=== PATIENT | male | born 1975 | race Caucasian/White ===

== ENCOUNTER → 2018-12-30 14:28 | Outpatient (CLI) | payer OTHER, SELFPAY ==
--- NOTE | 2018-12-30 | DI.CT.S_ITS ---
PROCEDURE: CT ABDOMEN PELVIS W CON INDICATIONS: abdominal pain TECHNIQUE: After the administration of oral and intravenous contrast, 5 mm thick sections acquired from the diaphragms to the symphysis. 5 mm thick coronal and sagittal reformats were performed. For radiation dose reduction, the following was used: automated exposure control, adjustment of mA and/or kV according to patient size. COMPARISON: None. FINDINGS: Image quality: Excellent. ABDOMEN: Lung bases: Lung bases are clear. Heart size is normal. Solid organs: Liver is normal in size and enhancement. Gallbladder is unremarkable. Biliary system is non-dilated. Pancreas enhances normally. Spleen is normal in size and enhancement. No adrenal nodules. Kidneys are normal in size and enhancement, without hydronephrosis. Small well-circumscribed cortical hypodensities in the right kidney which most likely represent benign cysts. Peritoneum and bowel: Stomach, small bowel, and colon loops are normal in caliber and wall thickness. Mild diverticulosis. Appendix is normal. No free fluid or air. Nodes and vessels: No retroperitoneal or mesenteric adenopathy. Aorta and inferior vena cava are normal in caliber. Miscellaneous: No ventral hernias. PELVIS: Genitourinary: Bladder is unremarkable. Miscellaneous: Small fat-containing right inguinal hernia, (2/43). No suspicious adenopathy. Bones: No suspicious bony lesions. No vertebral body compression fractures. IMPRESSION: Negative exam. No abnormality identified to explain the patient's abdominal pain. No kidney stones. Normal appendix and gallbladder. A few colonic diverticuli. Dictated by: Gabino Jay M.D. on 12/30/2018 at 17:08 Approved by: Gabino Jay M.D. on 12/30/2018 at 17:13
== END ==
PROVIDERS: PCP Family Medicine; Visit Provider Family Medicine
DX: R10.9 Unspecified abdominal pain (principal); K40.90 Unilateral inguinal hernia, without obstruction or gangrene, not specified as recurrent; K57.90 Diverticulosis of intestine, part unspecified, without perforation or abscess without bleeding
CPT/HCPCS: 74177

== ENCOUNTER → 2020-02-14 09:06 | Outpatient (CLI) | payer OTHER, SELFPAY ==
[2020-02-15 22:39] LABS: COVID19 Sendout Not Detected (Not Detect)
== END ==
PROVIDERS: PCP Family Medicine; Visit Provider Physician Assistant
DX: Z11.59 Encounter for screening for other viral diseases (principal)
CPT/HCPCS: 87635

== ENCOUNTER 2020-02-17 06:54 | Day surgery (SDC) | payer OTHER, SELFPAY ==
[2020-02-17] MEDS: CATARACT EYE COMPOUND (10 DROPS/SYRINGE) 3 DROPS EYE-OP (07:56)
[2020-02-17] MEDS: PROPARACAINE 0.5% OPHTH SOL 2 DROPS EYE-OP (07:56)
[2020-02-17 07:58] VITALS: BP 121/73; PULSE 61; RESP 15; TEMP 36.7; O2SAT 99
[2020-02-17 08:00] VITALS: BMI 26.5
--- NOTE | 2020-02-17 08:53 | PM.PREOP ---
Pre-operative Note Interval Note History & Physical reviewed/Exam performed by Physician: Yes Changes to H&P: No
--- NOTE | 2020-02-17 08:53 | PM.OP.1 ---
Operative Date/Time/Diagnoses Pre-op diagnosis: Nuclear cataract right eye Procedure & Clinicians Procedure: Cataract Surgery Same procedure as scheduled: Yes Surgeon: Vitaly De Leon Anesthesia Type: MAC +/- and Sedation Operative Notes Procedure in detail: Patient brought to the operating suite. Tetracaine drops placed in the right eye. Patient was prepped and draped in sterile manner. Wire lid speculum was placed in the eye. Betadine drops were placed on the eye. This was irrigated. Lidocaine jelly was placed on the eye. A paracentesis port was created with a side-port blade. 0.1 mL 1% preservative free lidocaine was injected into the anterior chamber. The anterior chamber was deepened with viscoelastic. 2.6 mm keratome was used to create a temporal clear corneal incision. Cystotome and Utrata forceps were used to create continuous tear capsulorrhexis. Balanced salt solution was used to hydro dissect the nucleus. The phacoemulsification handpiece was inserted and the nucleus was removed using the stop and chop technique. The irrigation aspiration handpiece was inserted and the remaining cortex was removed. Anterior chamber was deepened with viscoelastic. An Doran ZCB00 intraocular lens with a power of 30.5 was injected into the capsular bag. Irrigation aspiration handpiece was inserted and the remaining viscoelastic was removed. Incision was hydrated with balanced salt solution and found to be leak free with pressure with Weck-Mary sponges. 0.1 mL Vigamox injected anterior chamber. 0.3 mL Kenalog 10 mg was injected subconjunctivally. Lid speculum was removed. The patient left the operating room in excellent condition. Complications: none Post-operative Condition: stable Disposition: same day surgery
[2020-02-17] MEDS: CHONDROIDTIN/SOD HYALURONATE 1.05 ML SYRINGE INTRAOCULA (09:16)
[2020-02-17] MEDS: MOXIFLOXACIN INJ 5 MG/ML VIAL EYE-OP (09:16)
[2020-02-17] MEDS: TRIAMCINOLONE 50 MG/5 ML VIAL INJ (09:16)
[2020-02-17] MEDS: PHENYLEPHRINE/LIDOCAINE VIAL (OR) 0.2 ML EYE-OP (09:16)
[2020-02-17] MEDS: BALANCED SALT IRRIG SOLN NO.2 500 ML, EPINEPHrine 1 MG IRR (09:17)
[2020-02-17] MEDS: TETRACAINE 0.5% OPHTH DROPS 4 ML 2 DROPS EYE-OP (09:17)
[2020-02-17] MEDS: LIDOCAINE JELLY 2% 5 ML 1 APPLIC TOP (09:17)
[2020-02-17 09:40] VITALS: BP 107/69; PULSE 64; RESP 18; TEMP 36.7; O2SAT 96
== END 2020-02-17 09:45 | disposition home or self-care (01) ==
PROVIDERS: Admitting Provider Anesthesiology; PCP Family Medicine; Referring Provider Family Medicine; Visit Provider Ophthalmology
PROC: (CPT 66984; principal; 2020-02-17 08:45)
DX: H25.11 Age-related nuclear cataract, right eye (principal); I10 Essential (primary) hypertension; J45.909 Unspecified asthma, uncomplicated
CPT/HCPCS: 66984; J0171; J2250; J3010; J3301

== ENCOUNTER → 2020-02-28 08:41 | Outpatient (CLI) | payer OTHER, SELFPAY ==
[2020-03-01 06:00] LABS: COVID19 Sendout Not Detected (Not Detect)
== END ==
PROVIDERS: PCP Family Medicine; Visit Provider Physician Assistant
DX: Z01.812 Encounter for preprocedural laboratory examination (principal)
CPT/HCPCS: 87635

== ENCOUNTER 2020-03-02 07:05 | Day surgery (SDC) | payer OTHER, SELFPAY ==
[2020-03-02] MEDS: CATARACT EYE COMPOUND (10 DROPS/SYRINGE) 3 DROPS EYE-OP (07:18)
[2020-03-02] MEDS: PROPARACAINE 0.5% OPHTH SOL 2 DROPS EYE-OP (07:18)
[2020-03-02 07:31] VITALS: BP 108/71; PULSE 51; RESP 12; TEMP 36.4; O2SAT 96
[2020-03-02 07:32] VITALS: BMI 26.5
--- NOTE | 2020-03-02 08:31 | P.OP_ITS ---
Operative Date/Time/Diagnoses Pre-op diagnosis: Nuclear Cataract Left eye Post-op diagnosis: same Procedure & Clinicians Same procedure as scheduled: Yes Surgeon: Vitaly De Leon Anesthesia Type: MAC +/- and Sedation Operative Notes Procedure in detail: Patient brought to the operating suite. Tetracaine drops placed in the left eye. Patient was prepped and draped in sterile manner. Wire lid speculum was placed in the eye. Betadine drops were placed on the eye. This was irrigated. Lidocaine jelly was placed on the eye. A paracentesis port was created with a side-port blade. 0.1 mL 1% preservative free lidocaine was injected into the anterior chamber. The anterior chamber was deepened with viscoelastic. 2.6 mm keratome was used to create a temporal clear corneal incision. Cystotome and Utrata forceps were used to create continuous tear capsulorrhexis. Balanced salt solution was used to hydro dissect the nucleus. The phacoemulsification handpiece was inserted and the nucleus was removed using the stop and chop technique. The irrigation aspiration handpiece was inserted and the remaining cortex was removed. Anterior chamber was deepened with viscoe lastic. An Doran ZCB00 intraocular lens with a power of 33.0 was injected into the capsular bag. Irrigation aspiration handpiece was inserted and the remaining viscoelastic was removed. Incision was hydrated with balanced salt solution and found to be leak free with pressure with Weck-Mary sponges. 0.1 mL Vigamox injected anterior chamber. 0.3 mL Kenalog 10 mg was injected subconjunctivally. Lid speculum was removed. The patient left the operating room in excellent condition. Complications: none Post-operative Condition: stable Disposition: same day surgery
--- NOTE | 2020-03-02 08:31 | PM.PREOP ---
Pre-operative Note Interval Note History & Physical reviewed/Exam performed by Physician: Yes Changes to H&P: No
[2020-03-02] MEDS: TRIAMCINOLONE 50 MG/5 ML VIAL INJ (09:01)
[2020-03-02] MEDS: PHENYLEPHRINE/LIDOCAINE VIAL (OR) 0.2 ML EYE-OP (09:01)
[2020-03-02] MEDS: MOXIFLOXACIN INJ 5 MG/ML VIAL EYE-OP (09:01)
[2020-03-02] MEDS: CHONDROIDTIN/SOD HYALURONATE 1.05 ML SYRINGE INTRAOCULA (09:01)
[2020-03-02] MEDS: TETRACAINE 0.5% OPHTH DROPS 4 ML 2 DROPS EYE-OP (09:02)
[2020-03-02] MEDS: BALANCED SALT IRRIG SOLN NO.2 500 ML, EPINEPHrine 1 MG IRR (09:02)
[2020-03-02] MEDS: LIDOCAINE JELLY 2% 5 ML 1 APPLIC TOP (09:02)
[2020-03-02 09:18] VITALS: BP 104/69; PULSE 55; RESP 17; TEMP 36; O2SAT 95
== END 2020-03-02 09:30 | disposition home or self-care (01) ==
LOC: OR 07:05
PROVIDERS: PCP Family Medicine; Referring Provider Family Medicine; Visit Provider Ophthalmology
PROC: (CPT 66984; principal; 2020-03-02 08:15)
DX: H25.12 Age-related nuclear cataract, left eye (principal); J45.909 Unspecified asthma, uncomplicated; I10 Essential (primary) hypertension
CPT/HCPCS: 66984; J0171; J2250; J3010; J3301

== ENCOUNTER → 2020-07-26 14:30 | Outpatient (CLI) | payer OTHER, SELFPAY ==
[2020-07-26 16:07] LABS: COVID19 -Nasal RAPID Negative (Negative)
== END ==
PROVIDERS: PCP Family Medicine; Visit Provider Physician Assistant
DX: Z20.822 Contact with and (suspected) exposure to COVID-19 (principal)
CPT/HCPCS: 87635

== ENCOUNTER → 2020-07-28 15:16 | Outpatient (CLI) | payer OTHER, SELFPAY ==
--- NOTE | 2020-07-28 15:17 | DI.RAD.S_ITS ---
PROCEDURE: XR CHEST 2V INDICATIONS: CHEST PAIN TECHNIQUE: 2 views of the chest were acquired. COMPARISON: None. FINDINGS: Surgical changes and devices: None. Lungs and pleura: Lungs are clear. No pleural effusions or pneumothorax. Mediastinum: Mediastinal contours are normal. Heart size is normal. Bones and chest wall: No suspicious bony abnormalities. Soft tissues appear unremarkable. IMPRESSION: No source for chest pain identified radiographically. Dictated by: Arvind Woods RRA Interpreted: Mela Alcaraz MD on 07/28/2020 at 15:38 Approved by: Mela Alcaraz MD, PhD on 07/28/2020 at 15:39
--- NOTE | 2020-07-28 19:58 | DI.NM.S_ITS ---
DATE OF SERVICE: 07/28/2020 PROCEDURE: Exercise treadmill stress test without imaging. ORDERING PROVIDER: Dr. Ramesh Mas. INDICATIONS: The patient is a 45-year-old male with atypical chest discomfort. FINDINGS: 1. The patient was able to exercise for 11 minutes 21 seconds on a standard Matteo protocol suggesting average exercise capacity with an AMINTA of 0 percent, achieving 12.8 METs. 2. He had a normal heart rate and blood pressure response to exercise, achieving a maximum heart rate of 162 (93 percent of his predicted maximum). 3. He had no chest discomfort or anginal symptoms. 4. His resting ECG shows sinus bradycardia with normal ST segments. There were no significant ST-segment shifts with exercise. He had rare isolated PVCs, but no concerning or complex ectopy. IMPRESSION: 1. Normal exercise treadmill study with no electrocardiographic evidence for ischemia. 2. Average exercise capacity without angina. He had rare isolated premature ventricular contractions, but no concerning arrhythmias. Raul Cr - CRISSY/mari/michael doc#: [id number]/job#: [id number] dd: 07/28/2020 17:09:00 dt: 07/28/2020 19:45:00 DICTATING MD/COPIES TO: Ramesh Vela MD; Ramesh Mas MD COPIES MNE: YARED;
== END ==
PROVIDERS: PCP Family Medicine; Referring Provider Family Medicine; Visit Provider Family Medicine
DX: R07.9 Chest pain, unspecified (principal); R03.0 Elevated blood-pressure reading, without diagnosis of hypertension
CPT/HCPCS: 71046; 93017

== ENCOUNTER → 2020-07-29 08:37 | Outpatient (CLI) | payer OTHER, SELFPAY ==
[2020-07-29] MEDS: COVID-19 VACC #1, MRNA(MOD) 100 MCG/0.5 ML VIAL IM (08:45)
== END ==
PROVIDERS: PCP Family Medicine; Visit Provider Internal Medicine
DX: Z23 Encounter for immunization (principal)
CPT/HCPCS: 0011A; 91301

== ENCOUNTER → 2020-08-26 08:07 | Outpatient (CLI) | payer OTHER, SELFPAY ==
[2020-08-26] MEDS: COVID-19 VACC #2, MRNA(MOD) 100 MCG/0.5 ML VIAL IM (08:12)
== END ==
PROVIDERS: PCP Family Medicine; Visit Provider Internal Medicine
DX: Z23 Encounter for immunization (principal)
CPT/HCPCS: 0012A; 91301

== ENCOUNTER → 2022-02-08 17:25 | Outpatient (ROUT) | payer OTHER, SELFPAY ==
[2022-02-08 18:12] LABS: COVID19 -Nasal RAPID Negative (Negative)
== END ==
PROVIDERS: PCP Family Medicine; Visit Provider Family Medicine
DX: Z20.822 Contact with and (suspected) exposure to COVID-19 (principal)
CPT/HCPCS: 87635

== ENCOUNTER 2022-04-25 08:22 | Emergency (ER) | payer OTHER, SELFPAY ==
[2022-04-25 08:34] VITALS: BP 114/72; PULSE 72; RESP 18; TEMP 37.1; O2SAT 99
[2022-04-25 08:35] VITALS: PULSE 73; RESP 12; O2SAT 95
--- NOTE | 2022-04-25 08:40 | DI.RAD.S_ITS ---
PROCEDURE: XR CHEST 1V INDICATIONS: chest pain TECHNIQUE: One view of the chest was acquired. COMPARISON: [facility], CR, XR CHEST 2V, 07/28/2020, 15:24. FINDINGS: Surgical changes and devices: None. Lungs and pleura: Lungs are clear. No pleural effusions or pneumothorax. Mediastinum: Mediastinal contours appear normal. Heart size is normal. Bones and chest wall: No suspicious bony lesions. Overlying soft tissues appear unremarkable. IMPRESSION: No acute cardiopulmonary abnormality. Dictated by: Gabino Jay M.D. on 04/25/2022 at 9:20 Approved by: Gabino Jay M.D. on 04/25/2022 at 9:20
[2022-04-25 08:51] LABS: Prothrombin Time 11.6 SECONDS (10.1-12.7)
[2022-04-25 08:52] LABS: Add Manual Diff / Slide Review NO; Basophils Absolute Auto 0 /uL (0-100); Basophils Percent Auto 0.3 % (0-2); Eosinophils Absolute Auto 0 /uL (0-450); Eosinophils Percent Auto 0.3 % (2-4); Hematocrit 42.2 % (41-53); Hemoglobin 14.7 g/dL (13.5-17.5); Lymphocytes Absolute Auto 1800 /uL (1100-4500); Lymphocytes Percent Auto 34.4 % (25-40); Mean Corpuscular Hemoglobin 30.6 PG (26-34); Mean Corpuscular Volume 87.6 fL (80-100); Monocytes Absolute Auto 500 /uL (0-900); Monocytes Percent Auto 9.4 % (3-14); Neutrophils Absolute Auto 2900 /uL (1500-7000); Neutrophils Percent Auto 55.6 % (50-75); Platelet Count 188 X10^3/uL (150-400); Red Blood Cell Count 4.81 X10^6/uL (4.5-5.9); Red Cell Distribution Width 12.8 % (11.6-14.8); White Blood Cell Count 5.2 X10^3/uL (4.5-11.0)
[2022-04-25 08:54] LABS: PTT Partial Thromboplastin Tim 28 SECONDS (26-36)
--- NOTE | 2022-04-25 08:54 | ED_ITS ---
HPI - Syncope General Chief Complaint: Syncope Stated Complaint: Syncope Time Seen by Provider: 04/25/22 08:40 Source: patient and EMS Mode of arrival: EMS Limitations: no limitations History of Present Illness HPI narrative: Patient is a 46-year-old male history of hypertension hyperlipidemia presenting today after syncopal episode. Been sick with influenza the last couple of days. He is had decreased appetite still drinking fluids. Started to feel better last night and this morning. He is making his daughter breakfast trying to get her to school. Will making breakfast got extremely nauseous and flushed. [place] like he had an have a bowel movement he went to the bathroom where he almost passed out. Then he stood up and walked to the living room where he did pass out. It was just briefly. He did fall and hit his lip. Not on any antiplatelet or anticoagulation medications. He had no chest pain or palpitations. Did have warning signs. He has had some weakness and fatigue. Related Data Home Medications Medication Instructions Recorded Confirmed albuterol sulfate 90 mcg/actuation 2 puff inhalation Q4-6H PRN asthma 02/17/20 03/02/20 aerosol inhaler atenolol 25 mg tablet 25 mg PO DAILY 02/17/20 02/17/20 Allergies Allergy/AdvReac Type Severity Reaction Status Date / Time No Known Drug Allergies Allergy Verified 03/02/20 07:16 Review of Systems Review of Systems Narrative: GENERAL: Denies chills, fatigue, malaise, fever, sweats, travel HEENT: Denies sinus pain, ear pain, sore throat, difficulty swallowing, neck pain RESPIRATORY: Denies dyspnea, cough, wheezing, hemoptysis, sputum. CARDIOVASCULAR: Denies chest pain, palpitations, orthopnea, edema GASTROINTESTINAL: Denies nausea, vomiting, abdominal pain, diarrhea, constipation, melena. : Denies dysuria, frequency, incontinence, hematuria, urinary retention, flank pain. MUSCULOSKELETAL: Denies weakness, joint pain, or bony pain SKIN: No rash, no erythema, no pruritus NEUROLOGIC: See HPI PSYCHIATRIC: No concerning psychosocial issues. 12 point review of systems is negative except for those stated above and HPI Patient History Medical History Asthma Hypertension Social History household members: spouse and children Smoking Status: Never smoker alcohol intake: current Smoking Status: Never smoker alcohol intake frequency: 0-2 drinks per day Substance Use Type: does not use Exam Initial Vital Signs Initial Vital Signs: Vital Signs Temperature 98.7 F 04/25/22 08:34 Pulse Rate 72 04/25/22 08:34 Respiratory Rate 18 04/25/22 08:34 Blood Pressure 114/72 04/25/22 08:34 Pulse Oximetry 99 04/25/22 08:34 Oxygen Delivery Method 04/25/22 08:34 GENERAL: Alert pleasant 46-year-old male HEENT: Head atraumatic,EOMI, pupils reactive, face symmetric, moist mucous membranes CARDIOVASCULAR: Regular rate and rhythm without murmurs, rubs or gallops. RESPIRATORY: Breath sounds equal bilaterally, no wheezes rales or rhonchi. ABDOMEN: Soft, nontender. Normoactive bowel sounds all 4 quadrants. No guarding or rebound. EXTREMITIES: Normal range of motion, no clubbing or edema. Neurovascularly intact NEUROLOGICAL: Alert and oriented x4.Normal gait and speech. Moving all extrem ities SKIN: Warm, dry, no laceration, no petechiae, no rashes or lesions. Course Orders Ordered: ED Orders 04/25/22 08:30 Complete Blood Count AUTO DIFF Stat Comprehensive Metabolic Panel Stat Lipase Stat Magnesium Stat Partial Thromboplastin Time Stat Prothrombin Time INR Stat Troponin & CK Cardiac Panel Stat 04/25/22 08:40 XR chest 1V Stat EKG-12 Lead Stat Vital Signs Vital signs: Vital Signs - 8 hr 04/25/22 08:34 Temperature 98.7 F Pulse Rate 72 Respiratory Rate 18 Blood Pressure 114/72 Pulse Oximetry 99 Oxygen Delivery Method Room Air MDM - Syncope Lab Data Result diagrams: 04/25/22 08:30 04/25/22 08:30 Labs: Lab Results 04/25/22 04/25/22 04/25/22 Range/Units 08:30 08:30 08:30 WBC 5.2 (4.5-11.0) X10^3/uL RBC 4.81 (4.5-5.9) X10^6/uL Hgb 14.7 (13.5-17.5) g/dL Hct 42.2 (41-53) % MCV 87.6 (80-100) fL MCH 30.6 (26-34) PG MCHC 35.0 (30-36) % RDW 12.8 (11.6-14.8) % Plt Count 188 (150-400) X10^3/uL Neut % (Auto) 55.6 (50-75) % Lymph % (Auto) 34.4 (25-40) % Ashley % (Auto) 9.4 (3-14) % Eos % (Auto) 0.3 L (2-4) % Baso % (Auto) 0.3 (0-2) % Neut # (Auto) 2900 (7203-7437) /uL Lymph # (Auto) 1800 (9695-4267) /uL Ashley # (Auto) 500 (0-900) /uL Eos # (Auto) 0 (0-450) /uL Baso # (Auto) 0 (0-100) /uL PT 11.6 (10.1-12.7) SECONDS INR 1.0 (0.9-1.3) APTT 28 (26-36) SECONDS Sodium 138 (137-145) mmol/L Potassium 3.8 (3.4-5.1) mmol/L Chloride 99 (98-107) mmol/L Carbon Dioxide 29 (22-32) mmol/L BUN 16 (9-20) mg/dL Creatinine 0.90 (0.66-1.25) mg/dL Estimated GFR > 60 (>60) mL/min BUN/Creatinine Ratio 17.8 (6-22) Glucose 128 H (70-100) mg/dL Calcium 8.5 (8.4-10.2) mg/dL Magnesium 2.0 (1.6-2.3) mg/dL Total Bilirubin 0.6 (0.2-1.3) mg/dL AST 34 (17-59) IU/L ALT 29 (<50) IU/L Alkaline Phosphatase 44 (38-126) U/L Total Creatine Kinase 56 (55-170) U/L CK-MB (CK-2) TNP CK-MB (CK-2) Rel Index TNP Troponin I < 0.012 (0.01-0.034) ng/mL Total Protein 7.9 (6.3-8.2) g/dL Albumin 4.1 (3.5-5.0) g/dL Globulin 3.8 (1.7-4.1) g/dL Albumin/Globulin Ratio 1.1 (1.0-2.8) Lipase 109 (23-300) U/L Imaging Data Chest x-ray: Radiologist's Impression: ?Raul Cr MR#: [id number] : 1975 Acct:[id number] Age/Sex: 46 / M Date of Service: 04/25/22 Loc: ED Accession Number: [id number] ?? Procedure: XR chest 1V Ordering Provider: Gema Chin D.O. PROCEDURE:? XR CHEST 1V ? INDICATIONS:? chest pain ? TECHNIQUE:? One view of the chest was acquired.? ? COMPARISON:? [facility], CR, XR CHEST 2V, 07/28/2020, 15:24. ? FINDINGS:? ? Surgical changes and devices:? None.? ? Lungs and pleura:? Lungs are clear.? No pleural effusions or pneumothorax.? ? Mediastinum:? Mediastinal contours appear normal.? Heart size is normal.? ? Bones and chest wall:? No suspicious bony lesions.? Overlying soft tissues appear unremarkable.? ? IMPRESSION:? No acute cardiopulmonary abnormality. ? ? ? Dictated by: Gabino Jay M.D. on 04/25/2022 at 9:20 ? ? Approved by: Gabino Jay M.D. on 04/25/2022 at 9:20 ? ECG Data Interpretation: Normal sinus rhythm rate 70 OH interval 154 QRS [address] changes no T- wave inversions normal intervals MDM Narrative Medical decision making narrative: Patient has been ill for the last couple of days had a syncopal episode today. Sounds as though he had a vasovagal episode while having a bowel movement stood up too quickly. Blood work is overall reassuring. He is not hypotensive no significant acute kidney injury. Overall doing well. EKGs within normal limits. He is ambulatory in the emergency department without any difficulty. At this time no need for any further workup or imaging. Discharge Plan Departure Patient Disposition: Home Clinical Impression: Vasovagal syncope Instructions: DI for Syncope in Adults (Fainting) Activity Restrictions/Additional Instructions: *You have been diagnosed with syncopal episode *What to do: Increase fluid intake recommend Gatorade or Gatorade like product. Rest and take it easy. *Continue to take medications as directed *Follow up with your primary care provider in 2-3 days or call [phone] *Return to ER if you should have recurrent episode of passing out, chest pain shortness of breath or any new, worsening or concerning symptoms Prescriptions: No Action atenolol 25 mg Tablet 25 mg PO DAILY albuterol sulfate 90 mcg/actuation Hfa Aerosol Inhaler 2 puff INHALATION Q4-6H PRN (Reason: asthma) Label Comments: hasn't used in approx 2 years Referrals: Ramesh Mas MD [Primary Care Provider] - Visit Report Forms: Patient Portal/API
[2022-04-25 08:56] LABS: Alanine Aminotransferase 29 IU/L (<50); Albumin 4.1 g/dL (3.5-5.0); Albumin Globulin Ratio 1.1 (1.0-2.8); Alkaline Phosphatase 44 U/L (38-126); Aspartate Aminotransferase 34 IU/L (17-59); BUN Creatinine Ratio 17.8 (6-22); Bilirubin Total 0.6 mg/dL (0.2-1.3); Blood Urea Nitrogen 16 mg/dL (9-20); Calcium 8.5 mg/dL (8.4-10.2); Carbon Dioxide 29 mmol/L (22-32); Chloride 99 mmol/L (98-107); Creatine Kinase 56 U/L (55-170); Estimated Glomerular Filt Rate > 60 mL/min (>60); Globulin 3.8 g/dL (1.7-4.1); Glucose 128 mg/dL (70-100); HEMOLYSIS 20 (0-50); Lipase 109 U/L (23-300); Potassium 3.8 mmol/L (3.4-5.1); Sodium 138 mmol/L (137-145); Total Protein 7.9 g/dL (6.3-8.2)
[2022-04-25 09:00] VITALS: BP 110/69; PULSE 73; RESP 15; O2SAT 96
[2022-04-25 09:07] LABS: Troponin I < 0.012 ng/mL (0.01-0.034)
[2022-04-25 09:30] VITALS: BP 112/72; PULSE 65; RESP 19; O2SAT 99
[2022-04-25 09:56] VITALS: BP 115/75; PULSE 67; RESP 12; O2SAT 98
[2022-04-25 10:00] VITALS: BP 120/73; PULSE 64; RESP 12; O2SAT 98
--- NOTE | 2022-04-25 10:06 | PC.NURSE ---
Ambulated patient in hallway. Patient ambulated with steady gait
== END 2022-04-25 10:13 | disposition home or self-care (01) ==
PROVIDERS: Emergency Provider Emergency Medicine; PCP Family Medicine
DX: R55 Syncope and collapse (principal)
CPT/HCPCS: 36415; 71045; 80053; 82550; 83690; 83735; 84484; 85025; 85610; 85730; 93005; 93010; 99283; 99284

== ENCOUNTER → 2022-09-13 16:14 | Outpatient (CLI) | payer OTHER, SELFPAY ==
--- NOTE | 2022-09-13 | DI.RAD.S_ITS ---
PROCEDURE: XR CERVICAL SPINE 4V OR 5V INDICATIONS: lt arm numbness loss reflex TECHNIQUE: 5 views of the cervical spine were acquired. COMPARISON: None. FINDINGS: Bones: No fractures or dislocations to the T2 level. No suspicious bony lesions. There is normal range of motion between flexion and extension, with preserved normal bony alignment. Multilevel cervical spondylosis with degenerative endplate changes and endplate osteophyte formation. Mild disc space loss at C5-6 and C6-7. Straightening of cervical lordosis which may be due to patient positioning and/or concurrent muscle spasms. Soft tissues: Prevertebral soft tissues are normal in thickness. IMPRESSION: Cervical spine without acute fracture. Normal range of motion with preservation of bony alignment on flexion and extension views. Multilevel cervical spondylosis most severe at C5-6 and C6-7. Dictated by: Brendon Garcia M.D. on 09/13/2022 at 18:51 Approved by: Brendon Garcia M.D. on 09/13/2022 at 18:52
== END ==
PROVIDERS: PCP Family Medicine; Referring Provider Family Medicine; Visit Provider Family Medicine
DX: R20.2 Paresthesia of skin (principal); R29.2 Abnormal reflex; M47.812 Spondylosis without myelopathy or radiculopathy, cervical region
CPT/HCPCS: 72050

== ENCOUNTER → 2022-10-02 08:59 | Outpatient (CLI) | payer OTHER, SELFPAY ==
--- NOTE | 2022-10-02 09:12 | DI.MRI.S_ITS ---
PROCEDURE: MR CERVICAL SPINE WO/W CON INDICATIONS: Abnormal reflex TECHNIQUE: Noncontrast sagittal T1 spin echo and T2 fast spin echo, sagittal STIR, foraminal oblique sagittal T2 fast spin echo, axial gradient echo or T2 fast spin echo through the cervical spine. After the administration of contrast, axial and sagittal T1 spin echo with fat saturation through the cervical spine. COMPARISON: [facility], CR, XR CERVICAL SPINE 4V OR 5V, 09/13/2022, 16:27. FINDINGS: Image quality: Excellent. Alignment and curvature: There is to loss of normal cervical lordosis.. Marrow: Marrow is normal in overall signal, without suspicious enhancement. Will reactive signal throughout the endplates of the cervical and upper thoracic spine. Spinal cord: Visualized spinal cord has normal size and signal. No cerebellar tonsillar herniation. No abnormal intramedullary enhancement. Paraspinous soft tissues: No paravertebral masses or suspicious enhancement. C2-3: Mild disc desiccation and diffuse disc bulge. Mild facet and uncovertebral hypertrophy. Mild canal stenosis. Mild bilateral foraminal stenosis. C3-4: Mild facet and uncovertebral hypertrophy bilaterally. No canal stenosis. Mild bilateral foraminal stenosis. C4-5: Mild disc desiccation and diffuse disc bulge with small superimposed central protrusion. Mild facet and uncovertebral hypertrophy bilaterally. Moderate canal stenosis. Moderate bilateral foraminal stenosis. C5-6: Moderate disc desiccation. Mild disc height loss and diffuse disc bulge with superimposed left far lateral protrusion. Moderate to severe canal stenosis. Mild cord flattening. Severe bilateral foraminal stenosis with bilateral C6 nerve root compression. C6-7: Mild disc height loss and desiccation. Mild diffuse disc bulge with superimposed right paracentral protrusion. Mild facet and uncovertebral hypertrophy bilaterally. Moderate to severe canal stenosis. Mild right cord flattening. Severe right and moderate left foraminal stenosis. Right C7 nerve root compression. C7-T1: Mild diffuse disc bulge. Mild facet and uncovertebral hypertrophy. Mild canal stenosis. Mild bilateral foraminal stenosis. IMPRESSION: 1. Multilevel degenerative disc and facet disease, as well as uncovertebral hypertrophy. 2. Multilevel canal stenoses, worst at C5-C6 and C6-C7 where there is mild cord flattening. 3. Multilevel foraminal stenoses, worst at C5-C6 and C6-C7 where there is associated intraforaminal nerve root compression. Recommend correlation with clinical symptoms to ascertain relevance of these findings. Dictated by: Kaylynn Willoughby M.D. on 10/02/2022 at 10:15 Approved by: Kaylynn Willoughby M.D. on 10/02/2022 at 10:19
== END ==
PROVIDERS: PCP Family Medicine; Referring Provider Family Medicine; Visit Provider Family Medicine
DX: R20.2 Paresthesia of skin (principal); R29.2 Abnormal reflex; M50.31 Other cervical disc degeneration, high cervical region; M48.02 Spinal stenosis, cervical region; M47.812 Spondylosis without myelopathy or radiculopathy, cervical region
CPT/HCPCS: 72156; A9579

== ENCOUNTER 2023-05-22 07:14 | Day surgery (SDC) | payer OTHER, SELFPAY ==
--- NOTE | 2023-05-22 | PATH_ITS ---
[facility] Accession Number: [id number] No. of containers..02 Tissue . 01 Material submitted: . PART A: rectum - RECTAL MASS PART B: rectum - RECTAL POLYP X 2 . 01 Diagnosis: A. Rectum, Mass: Traditional serrated adenoma. See comment. The excision appears complete. No evidence of malignancy. . B. Rectum, Polyp x2: Fragments of traditional serrated adenoma and hyperplastic polyp. See comment. No evidence of malignancy. [facility] 05/25/2023 1327 Local . 01 Comment: A-B. Current surveillance guidelines recommend that a traditional serrated adenoma should be managed similar to an advanced adenoma. Complete polypectomy and shortened surveillance interval are recommended. . 01 Electronically signed: . Carie Yip MD, Pathologist NPI- [id number] . 01 Gross description: . A. Received in formalin, labeled with the patient's name, , and rectal mass, consists of two pendleton soft tissue fragments measuring 0.5 x 0.4 x 0.3 cm and 1.7 x 1.3 x 1.2 cm. The presumed margins are differentially inked, the fragments are sectioned, and the specimen is submitted entirely in cassettes A1-A2. B. Received in formalin, labeled with the patient's name, , and rectal polyp x2, consists of multiple pendleton soft tissue fragments aggregating to 0.7 x 0.5 x 0.1 cm. Filtered and submitted entirely in cassette B1. ([id number]) /MRV 05/24/2023 1816 Local . 01 Pathologist provided ICD-10: D12.8 . 01 CPT . 337834, [id number] Specimen Comment: A courtesy copy of this report has been sent to [phone] Performed at: 01 [facility] [address] [facility], [place], [place] [id number] MD Ángel Guan MD Phone: [phone]
[2023-05-22] MEDS: LACTATED RINGERS 1,000 ML 42 ML IV (07:26)
[2023-05-22 07:31] VITALS: BP 130/86; PULSE 62; RESP 16; TEMP 36.1; O2SAT 97; BMI 27.9
[2023-05-22] MEDS: ALBUTEROL 2.5 MG/3 ML NEB (ADULT) INH (07:40)
--- NOTE | 2023-05-22 07:44 | P.HP_ITS ---
History of Present Illness History of Present Illness Date Patient Seen: 05/22/23 Time Patient Seen: 07:44 Chief complaint: Screening Colonoscopy Narrative: The patient presents for colorectal screening. They have never had any previous examination for such. No personal or family history of colon cancer. On further history denies any recent gastrointestinal symptoms. No nausea, vomiting, abdominal pain, loss of appetite, unexplained weight loss, change in bowel habits, or blood per rectum. [facility] Medical History Asthma Hypertension Social History household members: spouse and children Smoking Status: Never smoker alcohol intake: current Meds Home Medications and Allergies Home Medications Medication Instructions Recorded Confirmed Type albuterol sulfate 90 mcg/actuation 2 puff inhalation Q4-6H PRN asthma 02/17/20 05/22/23 History aerosol inhaler atenolol 25 mg tablet 25 mg PO DAILY 02/17/20 05/22/23 History atorvastatin 10 mg tablet 10 mg PO DAILY 05/22/23 05/22/23 History Allergies Allergy/AdvReac Type Severity Reaction Status Date / Time No Known Drug Allergies Allergy Verified 05/22/23 07:29 Exam Vital Signs (past 8 hours): - 05/22/23 07:31 Temperature 97.0 F L Pulse Rate 62 Respiratory Rate 16 Blood Pressure 130/86 Pulse Oximetry 97 Oxygen Delivery Method Room Air Oxygen Delivery Method Room Air Narrative Exam Narrative: General adult man alert oriented no acute distress Chest nonlabored respiration Extremities warm well perfused Assessment & Plan Assessment & Plan narrative: The patient requires colorectal screening and colonoscopy is recommended. T echnical details were discussed. Risks, benefits, alternatives explained. Risks including but not limited to myocardial infarction, aspiration, bleeding, pain, missed lesion, incomplete examination, need for further radiographic studies, colonic perforation, and need for major abdominal surgery were discussed. All questions were answered to their satisfaction, and they are in agreement with this plan.
--- NOTE | 2023-05-22 07:45 | P.OP.COLON_ITS ---
Operative Date/Time/Diagnoses Date of procedure: 05/22/23 Time of procedure: 07:45 Pre-op diagnosis: Colorectal screening Post-op diagnosis: same Procedure & Clinicians Study performed: Colonoscopy Same procedure as scheduled: Yes Indications: Colorectal screening Surgeon: Jim Adam Procedure Notes Procedure in detail: The history and physical was performed/updated and the patient is ASA class is 2. The procedure was discussed in detail with the patient. Potential risks complications including infection, bleeding, missed diagnosis, perforation, need for surgery, and were explained. Their questions were answered and informed consent was obtained. Patient was brought to the procedure room and placed standard monitoring equipment. The patient's vital signs were monitored continuously throughout the entire procedure. Prior to starting time-out was performed. The patient was placed in the left lateral recumbent position. Procedural sedation was administered by anesthesia. Examination began with a thorough inspection of the perianal area there was no evidence of fissures, fistulae, external hemorrhoids or cutaneous malignancy. The colonoscopy scope was then placed into the anal canal and was advanced to the cecum, which was identified by the ileocecal valve, the appendiceal orifice and the confluence of the taenia. The scope was then slowly withdrawn examining colon thoroughly in all directions, irrigating it of any residual stool. The scope was retroflexed within the rectum The patient tolerated the procedure well. They will be discharged once criteria are met. The prep was of good/excellent quality. The withdrawl time was 15 minutes. FINDINGS * Rectal-Mass 2 cm with long stalk. Removed with hot snare and tatoo placed at base * Rectal polyps 3mm x 2 removed with biopsy forceps Specimen(s): other (rectal mass, rectal polyps x 2) Impression: colonic polyps x 3 Post-procedure Plan for aftercare: Follow up dependent on pathology findings Disposition: same day surgery
[2023-05-22 08:45] VITALS: BP 111/80; PULSE 69; RESP 20; TEMP 36.2; O2SAT 97
[2023-05-22 08:50] VITALS: BP 103/78; PULSE 65; RESP 17; O2SAT 95
[2023-05-22 08:55] VITALS: BP 106/76; PULSE 58; RESP 12; O2SAT 97
[2023-05-22 09:00] VITALS: BP 107/80; PULSE 57; RESP 15; O2SAT 95
== END 2023-05-22 09:42 | disposition home or self-care (01) ==
PROVIDERS: PCP Family Medicine; Referring Provider Surgery; Visit Provider Surgery
PROC: 0DJD8ZZ Inspection of Lower Intestinal Tract, Via Natural or Artificial Opening Endoscopic (ICD-10-PCS; CPT 45378; principal; 2023-05-22 08:15)
DX: Z12.11 Encounter for screening for malignant neoplasm of colon (principal); D12.8 Benign neoplasm of rectum
CPT/HCPCS: 45381; 45385; 45380; J2704; J7613

== ENCOUNTER 2023-08-01 10:39 | Emergency (ER) | payer OTHER, SELFPAY ==
[2023-08-01] VITALS (11 sets, daily range): BP systolic 128–159; BP diastolic 69–89; PULSE 38–58; RESP 12–19; TEMP 36.4; O2SAT 95–99
[2023-08-01] MEDS: ONDANSETRON 4 MG/2 ML INJ IV (11:33)
[2023-08-01 11:41] LABS: Add Manual Diff / Slide Review NO; Basophils Absolute Auto 0 /uL (0-100); Basophils Percent Auto 0.2 % (0-2); Eosinophils Absolute Auto 0 /uL (0-450); Hematocrit 45.5 % (41-53); Hemoglobin 15.7 g/dL (13.5-17.5); Lymphocytes Absolute Auto 1700 /uL (1100-4500); Lymphocytes Percent Auto 18.9 % (25-40); Mean Corpuscular HGB Conc 34.6 % (30-36); Mean Corpuscular Hemoglobin 30.8 PG (26-34); Monocytes Absolute Auto 500 /uL (0-900); Neutrophils Absolute Auto 6700 /uL (1500-7000); Neutrophils Percent Auto 74.9 % (50-75); Platelet Count 275 X10^3/uL (150-400); Red Blood Cell Count 5.11 X10^6/uL (4.5-5.9); Red Cell Distribution Width 12.8 % (11.6-14.8); White Blood Cell Count 8.9 X10^3/uL (4.5-11.0)
[2023-08-01 11:46] LABS: Alanine Aminotransferase 27 IU/L (<50); Albumin 4.5 g/dL (3.5-5.0); Albumin Globulin Ratio 1.2 (1.0-2.8); Alkaline Phosphatase 49 U/L (38-126); Aspartate Aminotransferase 25 IU/L (17-59); BUN Creatinine Ratio 12.8 (6-22); Blood Urea Nitrogen 10 mg/dL (9-20); Calcium 9.3 mg/dL (8.4-10.2); Carbon Dioxide 27 mmol/L (22-32); Chloride 104 mmol/L (98-107); Estimated Glomerular Filt Rate > 60 mL/min (>60); Globulin 3.7 g/dL (1.7-4.1); Glucose 140 mg/dL (70-100); HEMOLYSIS < 15 (0-50); Lipase 41 U/L (23-300); Potassium 4.2 mmol/L (3.4-5.1); Sodium 135 mmol/L (137-145); Total Protein 8.2 g/dL (6.3-8.2)
--- NOTE | 2023-08-01 11:59 | ED.GENADULT ---
HPI - General Adult General Chief complaint: Abdominal Pain Stated complaint: severe stomach pain Time Seen by Provider: 08/01/23 11:16 Source: patient Mode of arrival: Ambulatory History of Present Illness HPI narrative: 48-year-old gentleman with a history of hypertension presents with abdominal pain in the upper central abdomen that has been present for the last 3 days seems to be getting worse. He has been having difficulty sleeping because of the pain. No vomiting or diarrhea, he has been experiencing some nausea. There has been no fevers, chest pain, orthopnea or dyspnea. He is never had similar findings. He has never had any abdominal surgeries. He does not describe this as a burning only pain and uses his entire hand spread across his upper abdomen to describes the location Related Data Home Medications Medication Instructions Recorded Confirmed albuterol sulfate 90 mcg/actuation 2 puff inhalation Q4-6H PRN asthma 02/17/20 05/22/23 aerosol inhaler atenolol 25 mg tablet 25 mg PO DAILY 02/17/20 05/22/23 atorvastatin 10 mg tablet 10 mg PO DAILY 05/22/23 05/22/23 Previous Rx's Medication Instructions Recorded oxycodone-acetaminophen 5 mg-325 1 tab PO Q8H PRN pain #10 tabs 08/01/23 mg tablet (Percocet) Allergies Allergy/AdvReac Type Severity Reaction Status Date / Time No Known Drug Allergies Allergy Verified 08/01/23 10:43 Review of Systems Review of Systems Narrative: Pertinent positive and negative findings as per HPI Patient History Medical History Hypertension Asthma Social History household members: spouse and children Smoking Status: Never smoker alcohol intake: current Smoking Status: Never smoker alcohol intake frequency: 0-2 drinks per day Substance Use Type: does not use Exam Initial Vital Signs Initial Vital Signs: Vital Signs Temperature 97.5 F L 08/01/23 10:44 Pulse Rate 55 L 08/01/23 10:44 Respiratory Rate 15 08/01/23 10:44 Blood Pressure 139/88 08/01/23 10:44 Pulse Oximetry 97 08/01/23 10:44 Oxygen Delivery Method Room Air 08/01/23 10:44 General: Healthy appearing, appears to be in mild discomfort but. Able to give a complete and coherent history. Well-nourished well-developed HEENT: Moist mucous membranes, normal sclera with reactive pupils, Respiratory: Lungs are clear to auscultation, no wheezing no rales no rhonchi. Full and symmetrical air movement Cardiac: Regular rate and rhythm no murmurs no bruits Abdomen: Soft, no reproducible tenderness on palpation, good bowel tones, no flank pain Skin: Warm and dry, no rashes Neurologic: Grossly neurologically intact with no obvious asymmetries or abnormalities Extremities: No trauma, well perfused Psych: Cooperative, appropriate insight and affect Course Orders Ordered: ED Orders 08/01/23 11:17 Complete Blood Count AUTO DIFF Stat Comprehensive Metabolic Panel Stat Lipase Stat Trop I [Troponin I] Stat 08/01/23 12:06 CT abdomen pelvis w con Stat Ondansetron HCl (Ondansetron 4 Mg/2 Ml Inj) 4 mg IV NOW PRN PRN Reason: Nausea And Vomiting Last Admin: 08/01/23 11:33 Dose: 4 mg Documented By: AMAIRANI Discontinued Medications Sodium Chloride (Normal Saline 0.9%) 1,000 mls @ 1,000 mls/hr IV BOLUS ONE Stop: 08/01/23 13:49 Last Infusion: 08/01/23 14:05 Dose: Infused Documented By: Admin: 08/01/23 12:51 Dose: 1,000 mls/hr Documented By: AMAIRANI Vital Signs Vital signs: Vital Signs - 8 hr 08/01/23 10:44 08/01/23 12:25 08/01/23 12:28 Temperature 97.5 F L Pulse Rate 55 L 58 L Respiratory Rate 15 Blood Pressure 139/88 159/83 H Pulse Oximetry 97 95 Oxygen Delivery Method Room Air 08/01/23 12:28 Temperature Pulse Rate 44 L Respiratory Rate Blood Pressure Pulse Oximetry 99 Oxygen Delivery Method Medical Decision Making Lab Data 08/01/23 11:17 08/01/23 11:17 Labs: Lab Results 08/01/23 Range/Units 11:17 WBC 8.9 (4.5-11.0) X10^3/uL RBC 5.11 (4.5-5.9) X10^6/uL Hgb 15.7 (13.5-17.5) g/dL Hct 45.5 (41-53) % MCV 89.0 (80-100) fL MCH 30.8 (26-34) PG MCHC 34.6 (30-36) % RDW 12.8 (11.6-14.8) % Plt Count 275 (150-400) X10^3/uL Neut % (Auto) 74.9 (50-75) % Lymph % (Auto) 18.9 L (25-40) % [place] % (Auto) 6.0 (3-14) % Eos % (Auto) 0.0 L (2-4) % Baso % (Auto) 0.2 (0-2) % Neut # (Auto) 6700 (1965-4191) /uL Lymph # (Auto) 1700 (6407-2877) /uL [place] # (Auto) 500 (0-900) /uL Eos # (Auto) 0 (0-450) /uL Baso # (Auto) 0 (0-100) /uL Sodium 135 L (137-145) mmol/L Potassium 4.2 (3.4-5.1) mmol/L Chloride 104 (98-107) mmol/L Carbon Dioxide 27 (22-32) mmol/L BUN 10 (9-20) mg/dL Creatinine 0.78 (0.66-1.25) mg/dL Estimated GFR > 60 (>60) mL/min BUN/Creatinine Ratio 12.8 (6-22) Glucose 140 H (70-100) mg/dL Calcium 9.3 (8.4-10.2) mg/dL Total Bilirubin 1.0 (0.2-1.3) mg/dL AST 25 (17-59) IU/L ALT 27 (<50) IU/L Alkaline Phosphatase 49 (38-126) U/L Troponin I < 0.012 (0.01-0.034) ng/mL Total Protein 8.2 (6.3-8.2) g/dL Albumin 4.5 (3.5-5.0) g/dL Globulin 3.7 (1.7-4.1) g/dL Albumin/Globulin Ratio 1.2 (1.0-2.8) Lipase 41 (23-300) U/L Urine Dip Bedside Urine Glucose Negative Bedside Urine Bilirubin - Negative Bedside Urine Ketone - Negative Urine Specific [place] 1.010 Bedside Urine Occult Blood - Negative Bedside Urine pH 6.5 Bedside Urine Protein - Negative Bedside Urine Urobilinogen - Negative Bedside Urine Nitrite - Negative Bedside Urine Leukocytes - Negative Esterase Point of care testing: Urine Dip Bedside Urine Glucose Negative Bedside Urine Bilirubin - Negative Bedside Urine Ketone - Negative Urine Specific Howell 1.010 Bedside Urine Occult Blood - Negative Bedside Urine pH 6.5 Bedside Urine Protein - Negative Bedside Urine Urobilinogen - Negative Bedside Urine Nitrite - Negative Bedside Urine Leukocytes - Negative Esterase Imaging Data CT scan - abdomen/pelvis: Radiologist's Impression: PROCEDURE: CT ABDOMEN PELVIS W CON INDICATIONS: abdominal pain TECHNIQUE: After the administration of intravenous contrast, axial sections acquired from the lung bases to the pubic symphysis. Coronal and sagittal reformats were performed. For radiation dose reduction, the following was used: automated exposure control, adjustment of mA and/or kV according to patient size. COMPARISON: [facility], CT, CT ABDOMEN PELVIS W CON, 12/30/2018, 15:20. FINDINGS: Image quality: Diagnostic. Lower Chest: No significant findings. ABDOMEN: Liver: No solid mass. Gallbladder: No radiopaque gallstones or wall thickening. Biliary ducts: No biliary dilation. Pancreas: No ductal dilation. Spleen: Size is within normal limits. Adrenal Glands: No adrenal nodules. Kidneys and Ureters: No hydronephrosis. No solid mass. No complex renal cystic lesion which requires follow up. Stomach and Bowel: Normal colonic caliber, without significant wall thickening. Normal appendix. Peritoneum: No abnormal intraperitoneal fluid. No free air. Ventral Wall: No significant ventral hernia. Abdominal Nodes: No retroperitoneal or mesenteric adenopathy by size criteria. Vessels: Aorta and inferior vena cava are normal in size. PELVIS: Pelvic Organs: Unremarkable. Bladder: No bladder wall thickening, accounting for underdistention. Pelvic Nodes: No enlarged lymph nodes. Miscellaneous: Small fat containing right inguinal hernia. Bones: No aggressive osseous abnormality. IMPRESSION: 1. No acute abdominal process. 2. Incidental fat containing right inguinal hernia. 3. Otherwise unremarkable study. Dictated by: Balaji Roman M.D. on 08/01/2023 at 13:01 MDM Narrative Medical decision making narrative: CC: Abdominal pain for 3 days Complicating co-morbidities: Hypertension, asthma Data collected from: patient, Differential considered: Gallbladder issues, pancreatitis, gastritis, duodenal ulcer Exam documented above, pertinent findings include: No reproducible tenderness on exam, patient does appear uncomfortable Lab Test results independently reviewed as above. Pertinent findings: CBC is unremarkable with no evidence of significant leukocytosis or anemia Chemistries are reassuring, normal renal function, normal liver studies Lipase is unremarkable Independently reviewed EKG: Sinus bradycardia at a rate of 41. No ischemic changes Imaging studies independently reviewed: CT scan shows no acute pathology to explain the upper abdominal pain Treatments: 1 L of fluid, IV pantoprazole Discussion: 48-year-old gentleman presents with 3 days of diffuse upper abdominal pain that is been troublesome enough that he is having difficulty sleeping. Labs are reassuring without evidence of acute infection, anemia, pancreatitis, liver abnormalities, electrolyte abnormalities. Physical exam is benign with no reproducible abdominal tenderness. CT scan of the abdomen does not show significant abnormalities. We talked about the possibility of gastritis or developing ulcer as a source of his pain that could have normal labs as well as a normal CT, similarly a viral syndrome could do same. I have recommended 2 weeks of omeprazole to see if it influences his pain and he will follow up with his primary care physician. Findings reviewed with the patient questions are answered and he is safe for discharge Discharge Plan Departure Patient Disposition: Home Clinical Impression: Abdominal pain Qualifiers: Abdominal location: upper abdomen, unspecified Qualified Code(s): R10.10 - Upper abdominal pain, unspecified Instructions: DI for Abdominal Pain-Adult Activity Restrictions/Additional Instructions: Thank you for coming in today Your blood work was reassuring with no signs of acute infection, kidney problems liver problems pancreatitis or alternate explanation for your pain. There is no signs of anemia. We did a CT scan of your abdomen did not suggest acute gallbladder problems, pancreas problems no other masses or abnormalities that might explain your pain. We discussed the possibility of gastric irritation as the source of your symptoms. This could very well be present and you would have normal blood work as well as a normal CT scan. A viral syndrome would do the same thing. I am going to suggest 14 days of omeprazole, a stomach acid reduce her medication. I would also recommend avoiding nonsteroidals. Tylenol would be okay. Going to give you a very short prescription for Percocet to use at night so that you are least able to get some sleep. I would recommend that you follow up with Dr. Mas. If you find that you are getting worse or develop any new symptoms, please feel free to return to the emergency department for further evaluation. Prescriptions: New oxycodone-acetaminophen [Percocet] 5-325 mg tablet 1 tab PO Q8H PRN (Reason: pain) Qty: 10 0RF No Action atorvastatin 10 mg tablet 10 mg PO DAILY atenolol 25 mg Tablet 25 mg PO DAILY albuterol sulfate 90 mcg/actuation Hfa Aerosol Inhaler 2 puff INHALATION Q4-6H PRN (Reason: asthma) Patient Comments: hasn't used in approx 2 years Referrals: Ramesh Mas MD [Primary Care Provider] - Stand Alone Forms: Patient Portal/API
--- NOTE | 2023-08-01 12:06 | DI.CT.S_ITS ---
PROCEDURE: CT ABDOMEN PELVIS W CON INDICATIONS: abdominal pain TECHNIQUE: After the administration of intravenous contrast, axial sections acquired from the lung bases to the pubic symphysis. Coronal and sagittal reformats were performed. For radiation dose reduction, the following was used: automated exposure control, adjustment of mA and/or kV according to patient size. COMPARISON: [facility], CT, CT ABDOMEN PELVIS W CON, 12/30/2018, 15:20. FINDINGS: Image quality: Diagnostic. Lower Chest: No significant findings. ABDOMEN: Liver: No solid mass. Gallbladder: No radiopaque gallstones or wall thickening. Biliary ducts: No biliary dilation. Pancreas: No ductal dilation. Spleen: Size is within normal limits. Adrenal Glands: No adrenal nodules. Kidneys and Ureters: No hydronephrosis. No solid mass. No complex renal cystic lesion which requires follow up. Stomach and Bowel: Normal colonic caliber, without significant wall thickening. Normal appendix. Peritoneum: No abnormal intraperitoneal fluid. No free air. Ventral Wall: No significant ventral hernia. Abdominal Nodes: No retroperitoneal or mesenteric adenopathy by size criteria. Vessels: Aorta and inferior vena cava are normal in size. PELVIS: Pelvic Organs: Unremarkable. Bladder: No bladder wall thickening, accounting for underdistention. Pelvic Nodes: No enlarged lymph nodes. Miscellaneous: Small fat containing right inguinal hernia. Bones: No aggressive osseous abnormality. IMPRESSION: 1. No acute abdominal process. 2. Incidental fat containing right inguinal hernia. 3. Otherwise unremarkable study. Dictated by: Balaji Roman M.D. on 08/01/2023 at 13:01 Approved by: Balaji Roman M.D. on 08/01/2023 at 13:05
--- NOTE | 2023-08-01 12:28 | PC.NURSE ---
Patient returned from CT with c/o itching gums denies SOB, no throat tightness, no hives.
--- NOTE | 2023-08-01 12:47 | PC.NURSE ---
Patient resting heart beat reading low 40's with temporary dip into high 30's. Pt unaware of normal resting heart beat. Patient denies chest pain, SOB. Reports some dizziness might be related to last couple day
[2023-08-01] MEDS: SODIUM CHLORIDE 0.9% 1,000 ML 1000 ML IV (12:51)
[2023-08-01 13:50] LABS: Troponin I < 0.012 ng/mL (0.01-0.034)
[2023-08-01] MEDS: PANTOPRAZOLE 40 MG VIAL IV (14:17)
== END 2023-08-01 14:22 | disposition home or self-care (01) ==
PROVIDERS: Emergency Provider Emergency Medicine; PCP Family Medicine
DX: R10.10 Upper abdominal pain, unspecified (principal)
CPT/HCPCS: 36415; 74177; 80053; 81003; 83690; 84484; 85025; 93005; 96361; 96374; 96375; 99284; C9113; J2405; Q9967

== ENCOUNTER → 2024-02-12 09:00 | Outpatient (CLI) | payer OTHER, SELFPAY ==
--- NOTE | 2024-02-12 09:04 | DI.RAD.S_ITS ---
PROCEDURE: XR FOOT LT MIN 3V INDICATIONS: HELLUEX BOTH FEET TECHNIQUE: 3 views of the foot were acquired. COMPARISON: [facility], , FOOT 3V LEFT, 01/26/2016, 12:28. 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 The joint spaces are normal. No evidence hallux valgus . Soft tissues: No soft tissue abnormality. 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 No evidence of hallux valgus Dictated by: Joe Mendoza M.D. on 02/13/2024 at 10:19 Approved by: Joe Mendoza M.D. on 02/13/2024 at 10:20
--- NOTE | 2024-02-12 09:04 | DI.RAD.S_ITS ---
PROCEDURE: XR FOOT RT MIN 3V INDICATIONS: HELLUEX BOTH FEET TECHNIQUE: 3 views of the foot were acquired. COMPARISON: [facility], , FOOT 3V LEFT, 01/26/2016, 12:28. FINDINGS: Bones: There are no osseous abnormalities. 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 Soft tissues: No soft tissue abnormality. 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 Dictated by: Joe Mendoza M.D. on 02/13/2024 at 10:05 Approved by: Joe Mendoza M.D. on 02/13/2024 at 10:06
== END ==
LOC: RAD 09:02
PROVIDERS: PCP Family Medicine; Referring Provider Podiatrist Foot & Ankle Surgery; Visit Provider Podiatrist Foot & Ankle Surgery
DX: M20.21 Hallux rigidus, right foot (principal); M20.22 Hallux rigidus, left foot; M19.072 Primary osteoarthritis, left ankle and foot; M19.071 Primary osteoarthritis, right ankle and foot
CPT/HCPCS: 73630